=== PATIENT | female | born 1940 | race Caucasian/White ===

== ENCOUNTER 2024-03-17 14:45 | Outpatient (CLI) | payer MEDICARE | END 2024-03-17 14:46 | disposition home or self-care (01) | LOC: CSHLAB 14:45 | PROVIDERS: ATTEND Student in an Organized Health Care Education/Training Program | DX: Z01.818 Encounter for other preprocedural examination (principal); T19.2XXA Foreign body in vulva and vagina, initial encounter; R94.31 Abnormal electrocardiogram [ECG] [EKG] | CPT/HCPCS: 80048; 80076; 85027; 86850; 86900; 86901; 93005; 93010 ==

== ENCOUNTER 2024-03-20 05:57 | Day surgery (SDC) | payer MEDICARE ==
[2024-03-17 15:09] VITALS: BMI 21.2
[2024-03-17 15:33] LABS: Hematocrit 31.6 % (34.9-44.5); Hemoglobin 9.7 g/dL (12.0-15.5); Mean Corpuscular HGB CONC 30.7 g/dL (32.0-36.0); Mean Corpuscular Hemoglobin 23.4 pg (27.0-33.0); Mean Corpuscular Volume 76.1 fL (81.6-98.3); Mean Platelet Volume 10.3 fL (7.4-10.4); Platelet Count 405 10x3/uL (150-450); RBC Distribution Width 16.7 % (11.5-14.5); Red Blood Cell (RBC) Count 4.15 10x6/uL (3.90-5.03); White Blood Cell (WBC) Count 7.1 10x3/uL (3.5-10.5)
[2024-03-17 15:53] LABS: ALT (SGPT) 39 U/L (8-55); AST (SGOT) 54 U/L (5-34); Albumin 3.5 g/dL (3.4-4.8); Alkaline Phosphatase 71 U/L (40-110); Anion Gap 12 mmol/L (10-20); BUN (Urea Nitrogen) 16 mg/dL (9.8-20.1); Bilirubin, Direct 0.1 mg/dL (0.1-0.3); Bilirubin, Total 0.2 mg/dL (0.2-1.2); Calc. Creatinine Clearance 0 mL/min (70-130); Calcium 8.9 mg/dL (7.8-10.44); Carbon Dioxide 26 mmol/L (23-31); Chloride 105 mmol/L (98-107); Estimated GFR 90; Glucose 77 mg/dL (83-110); Potassium 3.6 mmol/L (3.5-5.1); Protein, Total 7.3 g/dL (5.8-8.1); Sodium 139 mmol/L (136-145)
[2024-03-20] MEDS ORDERED: PROPOFOL 20 ML ONE (08:01)
[2024-03-20] MEDS ORDERED: PROPOFOL 0 ML ONE (08:01)
[2024-03-20] MEDS ORDERED: Ondansetron PF 4 MG/2 ML Vial ONE (08:02)
[2024-03-20] MEDS ORDERED: fentaNYL 50 mcg/mL 1 mL Vial ONE ×2 (08:02→09:04)
[2024-03-20] MEDS ORDERED: Lidocaine 1% PF 5 ML VIAL ONE (08:03)
[2024-03-20] MEDS ORDERED: CEFAZOLIN 1 GM VIAL ONE (08:23)
[2024-03-20] MEDS ORDERED: metroNIDAZOLE 500 MG (100 mL) BAG ONE (08:50)
[2024-03-20] MEDS ORDERED: HYDROcodone/Acetaminophen 5/325 mg Tablet ONE (09:57)
== END 2024-03-20 10:30 | disposition home or self-care (01) ==
LOC: CSHSDC 05:57
PROVIDERS: ATTEND Student in an Organized Health Care Education/Training Program
PROC: 0UCG7ZZ Extirpation of Matter from Vagina, Via Natural or Artificial Opening (ICD-10-PCS; principal; 2024-03-20)
DX: T19.2XXA Foreign body in vulva and vagina, initial encounter (principal); I11.0 Hypertensive heart disease with heart failure; I50.9 Heart failure, unspecified; I48.91 Unspecified atrial fibrillation; I48.92 Unspecified atrial flutter; N81.4 Uterovaginal prolapse, unspecified; F03.90 Unspecified dementia, unspecified severity, without behavioral disturbance, psychotic disturbance, mood disturbance, and anxiety; R32 Unspecified urinary incontinence; Z90.49 Acquired absence of other specified parts of digestive tract; Z78.0 Asymptomatic menopausal state; Z95.818 Presence of other cardiac implants and grafts; Z95.0 Presence of cardiac pacemaker; Z79.2 Long term (current) use of antibiotics; Z79.02 Long term (current) use of antithrombotics/antiplatelets; Z79.899 Other long term (current) drug therapy; W44.8XXA Other foreign body entering into or through a natural orifice, initial encounter
CPT/HCPCS: 57415; 80048; 80076; 85027; 86850; 86900; 86901; J0690; J2405; J2704; J3010